=== PATIENT | female | born 1965 | race Caucasian/White ===

== ENCOUNTER 2016-08-31 13:22 | Observation (INO) | payer OTHER ==
[~2016-08-31] VITALS: Ht 154.9 cm; Wt 91.8 kg
[2016-08-31 15:01] LABS: RED BLOOD COUNT 3.63 M/UL (4.00-5.10); WHITE BLOOD COUNT 5.1 K/UL (4.5-11.0)
[2016-08-31 15:09] LABS: BUN/CREATININE RATIO 22 (0-10)
[2016-08-31] MEDS ORDERED: AMBIEN5 MG PO (21:15)
[2016-08-31] MEDS ORDERED: BUSPIRONE HCL15 MG PO (21:15)
[2016-08-31] MEDS ORDERED: ARMOUR THYROID60 MG PO (21:16)
[2016-08-31] MEDS ORDERED: WELLBUTRIN SR150 M1 PO (21:16)
[2016-08-31] MEDS ORDERED: LIPITOR TAB 1010 MG PO (21:16)
[2016-08-31] MEDS ORDERED: LISINOPRIL10 MG PO (21:17)
[2016-08-31] MEDS ORDERED: TRAZODONE HCL50 MG PO (21:17)
[2016-08-31] MEDS ORDERED: CYMBALTA60 MG PO (21:17)
[2016-08-31] MEDS ORDERED: NEURONTIN 400400 MG PO (21:17)
[2016-08-31] MEDS ORDERED: ATIVAN0.5 MG PO (21:18)
[2016-08-31] MEDS ORDERED: ENDOCET 7.5-321 EACH PO (21:18)
[2016-08-31] MEDS ORDERED: ASPIR 8181 MG PO (21:19)
[2016-08-31] MEDS ORDERED: TROKENDI XR50 MG PO (21:19)
[2016-08-31] MEDS ORDERED: LIDOPATCH1 EACH TP (21:20)
[2016-08-31] MEDS ORDERED: METOPROLOL TART25 MG PO (21:21)
[2016-08-31] MEDS ORDERED: PROTONIX40 M1 PO (21:21)
[2016-09-01 02:39] LABS: HEMOGLOBIN 9.3 gm/dl (12.3-15.3)
[2016-09-01 02:40] LABS: RED BLOOD COUNT 3.11 M/UL (4.00-5.10); WHITE BLOOD COUNT 3.3 K/UL (4.5-11.0)
[2016-09-01 03:22] LABS: BUN/CREATININE RATIO 20 (0-10)
[2016-09-02 04:34] LABS: HEMOGLOBIN 8.9 gm/dl (12.3-15.3); RED BLOOD COUNT 2.98 M/UL (4.00-5.10); WHITE BLOOD COUNT 2.7 K/UL (4.5-11.0)
[2016-09-02 04:49] LABS: BUN/CREATININE RATIO 13 (0-10)
[2016-09-02] MEDS ORDERED: BRILINTA90 MG PO (17:00)
[2016-09-02] MEDS ORDERED: LEVAQUIN500 MG PO (17:02)
== END 2016-09-02 17:35 | disposition home or self-care (01) ==
LOC: ER1 13:22 → ZEROF 17:36 → MED SURG 4 17:36
PROVIDERS: Emergency Medicine; ADMIT Emergency Medicine
DX: J20.9 Acute bronchitis, unspecified (principal); D69.6 Thrombocytopenia, unspecified; E86.0 Dehydration; E86.1 Hypovolemia; R07.89 Other chest pain; D61.818 Other pancytopenia; K59.00 Constipation, unspecified; E78.5 Hyperlipidemia, unspecified; I25.10 Atherosclerotic heart disease of native coronary artery without angina pectoris; I95.9 Hypotension, unspecified; I10 Essential (primary) hypertension; M79.7 Fibromyalgia; G47.00 Insomnia, unspecified; E03.9 Hypothyroidism, unspecified; K21.9 Gastro-esophageal reflux disease without esophagitis; F41.9 Anxiety disorder, unspecified; E66.9 Obesity, unspecified; Z79.82 Long term (current) use of aspirin; Z79.891 Long term (current) use of opiate analgesic; Z79.899 Other long term (current) drug therapy; Z90.711 Acquired absence of uterus with remaining cervical stump; Z95.5 Presence of coronary angioplasty implant and graft; Z90.49 Acquired absence of other specified parts of digestive tract; Z95.1 Presence of aortocoronary bypass graft
CPT/HCPCS: ECHO; 36415; 71020; 80048; 80053; 81001; 82550; 82553; 83735; 83874; 84439; 84443; 84484; 85025; 85027; 85610; 87086; 93005; 93306; 94664; 99285; G0378; J1642; J7030

== ENCOUNTER → 2020-08-28 | Outpatient (CLI) | payer MEDICARE, OTHER ==
[~2020-08-28] MED LIST: ABILIFY 2 MG TAB2 MG PO; ALL DAY ALLERGY10 M2 PO; AMBIEN5 MG PO; ARMOUR THYROID60 MG PO; ASPIR 8181 MG PO; ATIVAN0.5 MG PO; B-12500 MCG PO; BRILINTA90 MG PO; BUSPIRONE HCL15 MG PO; CYMBALTA60 MG PO; ENDOCET 7.5-321 EACH PO; FAMOTIDINE20 MG PO; FLONASE ALLER15.8 ML; FUROSEMIDE20 MG PO; GABAPENTIN400 MG PO; IBUPROFEN600 MG PO; ISOSORBIDE MONO30 MG PO; ISOSORBIDE MONO60 MG PO; KLOR-CON 1010 MEQ PO; LACTULOSE10 GM/151 PO; LEVAQUIN500 MG PO; LEVOTHYROXINE100 MC2 PO; LIDOPATCH1 EACH TP; LIPITOR TAB 1010 MG PO; LISINOPRIL10 MG PO; LOPRESSOR 25 MG25 MG PO; MELOXICAM15 MG PO; METOPROLOL SUCC25 MG PO; METOPROLOL TART25 MG PO; NEURONTIN 400400 MG PO; NITROSTAT 0.40.4 MG SL; PILOCARPINE HCL5 MG PO; PLAQUENIL200 MG PO; PROTONIX 40 MG40 M1 PO; PROTONIX40 M1 PO; RANEXA500 MG PO; TOPAMAX 25 MG T25 MG PO; TRAZODONE HCL150 MG PO; TRAZODONE HCL50 MG PO; TROKENDI XR50 MG PO; ULTRAM50 MG PO; VITAMIN D350000 UNIT PO; WELLBUTRIN SR150 M1 PO; XIIDRA OP; ZETIA10 MG PO; [UNRECOGNIZED DRUG - OTHER] PO
== END ==
LOC: HEART 5 08:14
DX: R94.39 Abnormal result of other cardiovascular function study (principal); R07.9 Chest pain, unspecified
CPT/HCPCS: 78452; A9502; J2785

== ENCOUNTER → 2020-09-19 | Outpatient (CLI) | payer MEDICARE, OTHER ==
[2020-09-19 16:37] LABS: HEMOGLOBIN 14.1 gm/dl (12.3-15.3); RED BLOOD COUNT 4.76 M/UL (4.00-5.10); WHITE BLOOD COUNT 8.1 K/UL (4.5-11.0)
== END ==
LOC: LAB 15:33
PROVIDERS: Internal Medicine Interventional Cardiology
DX: R94.39 Abnormal result of other cardiovascular function study (principal); I20.9 Angina pectoris, unspecified; I25.10 Atherosclerotic heart disease of native coronary artery without angina pectoris; I10 Essential (primary) hypertension; R00.2 Palpitations; R06.02 Shortness of breath
CPT/HCPCS: 80048; 85025; 85610; 85730; 93005

== ENCOUNTER → 2020-09-25 | Outpatient (CLI) | payer MEDICARE, OTHER ==
[~2020-09-25] VITALS: Ht 154.9 cm; Wt 96.2 kg
== END ==
LOC: CATH 07:30
DX: I25.118 Atherosclerotic heart disease of native coronary artery with other forms of angina pectoris (principal); I10 Essential (primary) hypertension; Z95.5 Presence of coronary angioplasty implant and graft; Z91.011 Allergy to milk products; Z91.012 Allergy to eggs; Z79.82 Long term (current) use of aspirin; Z79.891 Long term (current) use of opiate analgesic; Z79.899 Other long term (current) drug therapy
CPT/HCPCS: 99152; J1644; J2250; J3010; J7030; Q9967

== ENCOUNTER → 2020-11-22 | Outpatient (CLI) | payer MEDICARE | LOC: EXRD 11:17 | DX: M25.562 Pain in left knee (principal) | CPT/HCPCS: 73564 ==

== ENCOUNTER → 2020-12-12 | Outpatient (CLI) | payer MEDICARE | LOC: KOH-I 12-04 09:30 | DX: R10.31 Right lower quadrant pain (principal); N20.0 Calculus of kidney; Z85.3 Personal history of malignant neoplasm of breast | CPT/HCPCS: 74176 ==

== ENCOUNTER 2021-05-30 18:12 | Emergency (ER) | payer MEDICARE | END 2021-05-30 20:00 | disposition left against medical advice (07) | LOC: ER1 18:12 | DX: U07.1 COVID-19 (principal); I11.9 Hypertensive heart disease without heart failure; Z95.5 Presence of coronary angioplasty implant and graft | CPT/HCPCS: 71045; 99283 ==

== ENCOUNTER → 2021-07-22 | Outpatient (CLI) | payer MEDICARE | LOC: EXRD 13:49 | DX: Z86.16 Personal history of COVID-19 (principal) | CPT/HCPCS: 71046 ==

== ENCOUNTER → 2021-08-27 | Outpatient (CLI) | payer MEDICARE | LOC: HEART 5 10:21 | DX: R06.02 Shortness of breath (principal) | CPT/HCPCS: 94010 ==

== ENCOUNTER → 2021-09-06 | Outpatient (CLI) | payer MEDICARE | LOC: LAB 13:33 | DX: G47.34 Idiopathic sleep related nonobstructive alveolar hypoventilation (principal) | CPT/HCPCS: 36600; 82803 ==

== ENCOUNTER → 2021-10-19 | Outpatient (CLI) | payer MEDICARE | LOC: SLEEP 10:03 | DX: G47.33 Obstructive sleep apnea (adult) (pediatric) (principal) | CPT/HCPCS: 95810 ==

== ENCOUNTER 2021-11-10 22:27 | Emergency (ER) | payer MEDICARE ==
[2021-11-10 23:33] LABS: HEMOGLOBIN 14.1 gm/dl (12.3-15.3); RED BLOOD COUNT 4.84 M/UL (4.00-5.10); WHITE BLOOD COUNT 11.8 K/UL (4.5-11.0)
[2021-11-11] MEDS ORDERED: FLOMAX0.4 MG PO (02:56)
[2021-11-11] MEDS ORDERED: BENTYL 20MG TAB20 MG PO (02:56)
[2021-11-11] MEDS ORDERED: ZOFRAN ODT 4 MG4 MG PO (02:56)
[2021-11-11] MEDS ORDERED: IBUPROFEN600 MG PO (02:56)
== END 2021-11-11 03:09 | disposition home or self-care (01) ==
LOC: ER1 22:27
PROVIDERS: Physician Assistant Medical
DX: R10.31 Right lower quadrant pain (principal); R10.813 Right lower quadrant abdominal tenderness; R11.2 Nausea with vomiting, unspecified; I25.2 Old myocardial infarction; Z87.442 Personal history of urinary calculi; E78.5 Hyperlipidemia, unspecified; I10 Essential (primary) hypertension; Z90.710 Acquired absence of both cervix and uterus; Z90.89 Acquired absence of other organs; Z95.5 Presence of coronary angioplasty implant and graft; Z90.49 Acquired absence of other specified parts of digestive tract
CPT/HCPCS: 80053; 81001; 83690; 85025; 99284